=== PATIENT | female | born 1950 | race Caucasian/White ===

== ENCOUNTER 2017-12-23 06:47 | Observation (INO) | payer MEDICARE, BC ==
[~2017-12-23] VITALS: Ht 175.3 cm; Wt 100.0 kg
[~2017-12-23 06:47] MED LIST: ATOR10TA PO; DILTIAZEM PO; MONT10TA6 PO; NORCO PO; ROBAXIN PO
[2017-12-23] MEDS ORDERED: LACTATED RINGERS 1,000 ML IV SCH (07:35)
[2017-12-23] MEDS ORDERED: VALA500T4 PO (07:43)
[2017-12-23] MEDS ORDERED: LIDOCAINE-MPF 1%, 2ML INFIL ONE (08:00)
[2017-12-23] MEDS ORDERED: FENTANYL PF 100 MCG/2ML ONE ×2 (08:26→11:52)
[2017-12-23] MEDS ORDERED: MIDAZOLAM 1 MG/ML, 2ML ONE (08:27)
[2017-12-23] MEDS ORDERED: LIDOCAINE-MPF 2% ,5ML ONE (08:28)
[2017-12-23] MEDS ORDERED: PROPOFOL 10 MG/ML, 20ML ONE (08:28)
[2017-12-23] MEDS ORDERED: SODIUM CHLORIDE 0.9% PF 10ML ONE (08:29)
[2017-12-23] MEDS ORDERED: CEFAZOLIN 1,000 MG ONE ×2 (08:29)
[2017-12-23] MEDS ORDERED: ACETAMINOPHEN 500 MG TABLET PO ONE (08:30)
[2017-12-23] MEDS ORDERED: GABAPENTIN 300 MG CAPSULE PO ONE (08:30)
[2017-12-23] MEDS ORDERED: EPINEPHRINE 1 MG/ML, 1ML ONE (09:07)
[2017-12-23] MEDS ORDERED: KETOROLAC 60 MG/2 ML ONE (09:07)
[2017-12-23] MEDS ORDERED: SODIUM CHLORIDE 0.9% 100 ML ONE (09:07)
[2017-12-23] MEDS ORDERED: TRANEXAMIC ACID 100 MG/ML, 10ML ONE (09:07)
[2017-12-23] MEDS ORDERED: ROPIvacaine/PF 0.2%, 20 ML ONE (09:07)
[2017-12-23] MEDS ORDERED: PROPOFOL 50 ML ONE (09:34)
[2017-12-23] MEDS ORDERED: ONDANSETRON 2MG/ML, 2ML ONE (09:50)
[2017-12-23] MEDS ORDERED: DEXAMETHASONE 4 MG/ML, 1ML ONE (09:50)
[2017-12-23] MEDS ORDERED: DIPHENHYDRAMINE 25 MG CAPSULE PO PRN (11:30)
[2017-12-23] MEDS ORDERED: HYDROcodone/APAP 10/325 MG TABLET PO PRN (11:30)
[2017-12-23] MEDS ORDERED: SENNA/DOCUSATE TABLET PO PRN (11:30)
[2017-12-23] MEDS ORDERED: PROMETHAZINE 25 MG/ML, 1ML IV PRN (11:30)
[2017-12-23] MEDS ORDERED: BISACODYL 10 MG SUPP PR PRN (11:30)
[2017-12-23] MEDS ORDERED: HYDROmorphone 1 MG/ML, 1ML IV PRN ×2 (11:30)
[2017-12-23] MEDS ORDERED: ALUMINUM/MAG/SIMETHICONE 30 ML UDC PO PRN (11:30)
[2017-12-23] MEDS ORDERED: MAGNESIUM HYDROXIDE 8%, 30ML UDC PO PRN (11:30)
[2017-12-23] MEDS ORDERED: ONDANSETRON 2MG/ML, 2ML IV PRN (11:30)
[2017-12-23] MEDS ORDERED: PROMETHAZINE 12.5 MG SUPP PR PRN (11:30)
[2017-12-23] MEDS ORDERED: HYDROcodone/APAP 7.5-325MG/15ML UDC PO PRN (11:30)
[2017-12-23] MEDS ORDERED: ZOLPIDEM 5MG TABLET PO PRN (11:30)
[2017-12-23] MEDS ORDERED: HALOPERIDOL 5 MG/ML IV PRN (11:30)
[2017-12-23] MEDS ORDERED: ONDANSETRON 4 MG TABLET PO PRN (11:30)
[2017-12-23] MEDS ORDERED: LABETALOL 5MG/ML, 20ML IV PRN (11:30)
[2017-12-23] MEDS ORDERED: PROMETHAZINE 25 MG/ML, 1ML IM PRN (11:30)
[2017-12-23] MEDS ORDERED: DIAZEPAM 5 MG TABLET PO PRN (11:30)
[2017-12-23] MEDS ORDERED: ACETAMINOPHEN 650 MG/20.3 ML UDC PO PRN (11:30)
[2017-12-23] MEDS ORDERED: hydrALAzine 20 MG/ML, 1ML IV PRN (11:30)
[2017-12-23] MEDS: TAMSULOSIN 0.4 MG CAP.ER.24H PO SCH (11:45)
[2017-12-23] MEDS ORDERED: HYDROcodone/APAP 7.5-325MG/15ML UDC ONE (11:47)
[2017-12-23] MEDS: FENTANYL PF 100 MCG/2ML IV PRN ×2 (11:54→12:00)
[2017-12-23] MEDS ORDERED: TRANEXAMIC ACID 1,000 MG in SODIUM CHLORIDE 0.9% 100 ML IVPB ONE (12:00)
[2017-12-23 12:40] VITALS: BP 148/52
[2017-12-23] MEDS: HYDROcodone/APAP 10/325 MG TABLET PO SCH ×3 (13:33→20:32)
[2017-12-23] MEDS ORDERED: CEFAZOLIN PMX 1GM/50ML 0 ML ONE (14:47)
[2017-12-23] MEDS: D5%-0.45% NACL 1,000 ML IV SCH ×2 (14:51→22:00)
[2017-12-23] MEDS: CEFAZOLIN PMX 2GM/50ML 50 ML IVPB SCH (16:08)
[2017-12-23] MEDS ORDERED: CEFAZOLIN PMX 2GM/50ML 50 ML IVPB SCH (17:00)
[2017-12-23 20:05] VITALS: BP 99/56
[2017-12-23] MEDS: DOCUSATE 100 MG CAPSULE PO SCH (20:33)
[2017-12-23] MEDS ORDERED: ATORVASTATIN 10 MG TABLET PO SCH (21:00)
[2017-12-24 00:11] VITALS: BP 117/68
[2017-12-24] MEDS: HYDROcodone/APAP 10/325 MG TABLET PO SCH ×4 (00:13→10:58)
[2017-12-24] MEDS: CEFAZOLIN PMX 2GM/50ML 50 ML IVPB SCH (00:13)
[2017-12-24 03:17] VITALS: BP 122/72
[2017-12-24] MEDS: D5%-0.45% NACL 1,000 ML IV SCH ×2 (06:00→14:00)
[2017-12-24] MEDS ORDERED: DEXAMETHASONE 4 MG/ML, 1ML IVPush SCH (06:00)
[2017-12-24] MEDS: RIVAROXABAN 10 MG TABLET PO SCH ×2 (06:38→07:57)
[2017-12-24 07:25] VITALS: BP 113/67
[2017-12-24] MEDS: TAMSULOSIN 0.4 MG CAP.ER.24H PO SCH (07:57)
[2017-12-24] MEDS: DOCUSATE 100 MG CAPSULE PO SCH (07:57)
[2017-12-24] MEDS ORDERED: ATORVASTATIN 10 MG TABLET PO SCH (08:00)
[2017-12-24] MEDS ORDERED: MULTIVITAMINS/MINERALS TABLET PO SCH (09:00)
[2017-12-24] MEDS ORDERED: MONTELUKAST 10 MG TABLET PO SCH (09:00)
[2017-12-24] MEDS ORDERED: DILTIAZEM 120 MG CAP.ER.24H PO SCH (09:00)
[2017-12-24] MEDS ORDERED: HYDROcodone/APAP 5/325 TABLET PO PRN (10:30)
[2017-12-24] MEDS ORDERED: KETOROLAC 30 MG/1 ML IV SCH (11:30)
[2017-12-24 14:04] VITALS: BP 97/59
== END 2017-12-24 15:51 | disposition home or self-care (01) ==
LOC: OUT 06:47 → INTOOBSV 11:19 → ORIP 11:19 → 4NOR 12:45 → DCLOUNGE 12-24 15:33
PROVIDERS: ADMIT Orthopaedic Surgery; ATTEND Orthopaedic Surgery
DX: M17.11 Unilateral primary osteoarthritis, right knee (principal); M21.061 Valgus deformity, not elsewhere classified, right knee; E78.5 Hyperlipidemia, unspecified
CPT/HCPCS: 27447; 36415; 73560; 85014; 85018; 96365; 96375; 97116; 97150; 97161; 97165; 97530; C1713; C1776; G0378; J0171; J0690; J1100; J1885; J2250; J2405; J2704; J2795; J3010; J3490; J7120